=== PATIENT | female | born 1980 | race Caucasian/White ===

== ENCOUNTER 2016-04-14 17:14 | Emergency (ER) ==
[2016-04-14] MEDS ORDERED: NORFLEX IM ONE (17:30)
--- NOTE | 2016-04-14 17:40 | PROVIDER DOCUMENTATION ---
HPI-Musculoskeletal Pain/Inj - GENERAL Chief Complaint: Back Pain Stated Complaint: LOWER BACK PAIN Time Seen by Provider: 04/14/16 17:23 Source: patient - HX OF PRESENT ILLNESS-MUSKULOSKELTAL Nature of Presenting Problem: 36 y/o WF c/o back pain x 1 day. Pt states she was lifting a sofa yesterday when she noted pain in her R low back. States worse since that time, and notes numbness/tingling in RLE on medial aspect of calf. States pain shooting down thigh and lateral aspect of calf. States pain 9/10. Denies any other sxs, including inability to ambulate, bowel/bladder dysfunction, saddle anesthesia. Review of Systems - Adult - REVIEW OF SYSTEMS - ADULT Constitutional: reports: no symptoms reported. denies: chills, fever Eyes: reports: no symptoms reported. denies: blurred vision, double vision Ears, Nose, Mouth & Throat: reports: no symptoms reported. denies: ear pain, nose pain Cardiovascular: reports: no symptoms reported. denies: chest pain, palpitations Respiratory: reports: no symptoms reported. denies: dyspnea on exertion, shortness of breath Gastrointestinal: reports: no symptoms reported. denies: abdominal pain, nausea , vomiting Genitourinary: reports: no symptoms reported. denies: dysuria, frequency Musculoskeletal: reports: see HPI, back pain. denies: joint pain, joint swelling Integumentary: reports: no symptoms reported. denies: nail changes, rash Neurological: reports: see HPI, numbness, paresthesia. denies: headache/ migraines, syncope Psychiatric: reports: no symptoms reported Endocrine: reports: no symptoms reported. denies: cold intolerance, heat intolerance Hematologic/Lymphatic: reports: no symptoms reported. denies: easy bruising, prolonged bleeding Allergic/Immunologic: reports: no symptoms reported All Other Systems: Reviewed and Negative Past History - Adult - PAST MEDICAL HISTORY-ADULT Review of Records: reports: Nursing Assessment Review, Medications Reviewed Major Childhood Illnesses: reports: denies history Cardiovascular: reports: denies history Respiratory: reports: denies history Gastrointestinal: reports: denies history Obstetrical/Gynecological: reports: denies history Genitourinary: reports: denies history Musculoskeletal: reports: fibromyalgia Neurological: reports: denies history Endocrine/Immune: reports: denies history Other Conditions: reports: denies history - IMMUNIZATION STATUS Childhood Immunizations: See Nurse Assessment Flu Vaccine: See Nurse Assessment - FAMILY HISTORY Family History: reviewed, not pertinent - SOCIAL HISTORY Smoking: cigarettes, less than 1 pack/day Provider spent 3-5 mins advising pt. on dangers of tobacco.: Discussed manners to quit use, and f/u contacts for add'l counseling. Alcohol Use Frequency: never Physical Exam-Injury Related - Physical Exam-Injury Related Initial Vital Signs Reviewed: Yes General Appearance: alert, mild distress, obese Eyes: pink conjunctivae Head, Ears, Nose, Mouth & Throat: normocephalic/atraumatic, moist mucous membranes Neck: normal inspection Respiratory: no respiratory distress Cardiovascular: normal peripheral pulses, regular rate, rhythm Peripheral Pulses: dorsalis-pedis (R): 1+, dorsalis-pedis (L): 1+ Back Exam: decreased range of motion, vertebral tenderness (lumbar), other (TTP R low back). negative: swelling Extremity: normal gait, normal inspection, normal capillary refill, abnormal NV exam (states decreases sensation at L5/4 dermatome, in an inconsistent pattern- only on the medial calf, not on the foot or thigh.). negative: pulse deficit, tenderness DTR: knee (R): 3+, knee (L): 3+ Neurologic: negative: aphasia, motor weakness (bilat LE) Psych/Mental Status: AL, normal mood/affect, normal thought content, normal thought process, oriented x 3 Progress - PLAN OF CARE/RESULTS Progress/Plan/Lab Results: Orders Category Date Time Status LUMBAR SPINE [RAD] Stat Exams 04/14/16 17:29 Taken Dexamethasone [Decadron] Med 04/14/16 18:36 Discontinued 8 mg PO NOW ONE Orphenadrine [Norflex] Med 04/14/16 17:30 Discontinued 60 mg IM NOW ONE Vital Signs Temp Pulse Resp BP Pulse Ox 04/14/16 19:07 105 H 18 153/91 99 04/14/16 17:16 97.7 F 114 H 18 178/107 100 dicyclomine HCl * [From Bentyl] Allergy (Verified 04/14/16 17:34) DIARRHEA ketorolac tromethamine * [From Toradol] Allergy (Verified 04/14/16 17:34) DIARRHEA Duloxetine [Cymbalta] 90 mg PO DAILY 10/15/15 Gabapentin [Neurontin] 600 mg PO TID 04/14/16 Methocarbamol [Robaxin] 500 mg PO BID #30 tablet 04/14/16 Metoprolol [Lopressor] 50 mg PO BID 04/14/16 Prednisone 20 mg PO DAILY #15 tablet 04/14/16 Discussed results and medication use with pt, including f/u. Departure - Departure Time of Disposition Order: 18:36 DIAGNOSIS: Low back sprain Qualifiers: Encounter type: initial encounter Qualified Code(s): S33.9XXA - Sprain of unspecified parts of lumbar spine and pelvis, initial encounter Disposition: HOME 01 Certified Medical Emergency: Emergent Condition: Stable Additional Instructions: Take medications as directed. Follow up with specialist for further management. Ice or heat as needed, and limit activity. ED Follow Up Instructions: You have been treated by a care provider in the Emergency Department. These instructions are being provided to you so you can have an understanding of how to care for yourself upon discharge. Upon discharge from the Emergency Department, you are responsible for making arrangements for follow-up care by a physician of your choice. Take all prescribed medications as directed. Return to the Emergency Department immediately for any new or worsening symptoms. You may call the Physician Referral phone number at [phone] to obtain a list of Physicians who are taking new patients. Prescriptions: Prednisone 20 mg PO DAILY #15 tablet Methocarbamol [Robaxin] 500 mg PO BID #30 tablet Referrals: Yanna Jackson [Primary Care Provider] - Uyen Sneed DO [STAFF PHYSICIAN] - Tay Brice MD [STAFF PHYSICIAN] - Forms: Return to School/Parent Work Instructions: Back Pain, Adult, [id number] Attestation - Physician/ Mid-level Attestation Patient care was provided by Mid-level provider (GLUING PRESSMAN/PA):: Yes Mid-level provider:: Liz Paz Mid-level documentation review:: The Mid-level provider documentation, treatment plan and medical decision making was reviewed by the physician who agrees with all treatment and medical decision making by the MLP.
[2016-04-14] MEDS ORDERED: DECADRON PO ONE (18:36)
[2016-04-14 19:07] VITALS: BP 153/91
--- NOTE | 2016-04-14 21:57 | Diag Imaging Result Document ---
PROCEDURE NAME: LUMBAR SPINE - 04/14/2016 PLAIN RADIOGRAPH THE LUMBAR SPINE 7 VIEWS: COMPARISON: None available. FINDINGS: There are very mild endplate degenerative changes at L2-3 with small marginal osteophyte formation and minimal loss of disk space height. There is no evidence of fracture, subluxation, or intrinsic osseous lesion, otherwise. Surrounding soft tissues are grossly unremarkable. IMPRESSION: Mild degenerative disk disease at L2-3. No definite acute osseous.
== END 2016-04-14 19:12 | disposition home or self-care (01) ==
LOC: ED 17:14
DX: S33.9XXA Sprain of unspecified parts of lumbar spine and pelvis, initial encounter (principal); M54.9 Dorsalgia, unspecified; R20.0 Anesthesia of skin; R20.9 Unspecified disturbances of skin sensation; X50.0XXA Overexertion from strenuous movement or load, initial encounter; M79.7 Fibromyalgia; F17.210 Nicotine dependence, cigarettes, uncomplicated; Z71.6 Tobacco abuse counseling; Z79.899 Other long term (current) drug therapy
CPT/HCPCS: 72110; 96372; J2360; J8540